=== PATIENT | male | born 1950 | race Caucasian/White ===

== ENCOUNTER 2016-12-02 12:41 | Emergency (ER) | payer MEDICARE, OTHER ==
--- OUTSIDE RECORDS SUMMARY | 2016-12-02 13:16 | XMS REPORT | Summary of Care ---
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) Encounter for screening for malignant Active neoplasm of prostate(Confirmed) Neoplasm of unspecified behavior of Active bladder(Confirmed) Relative Impotence(Confirmed) Active Allergies, Adverse Reactions, Alerts No Known Medication Allergies Medications aspirin 81 mg oral tablet tab(s), Oral, Daily, 0 Refill(s) Start Date: 04/11/14 Status: Ordereddiltiazem 240 mg/24 hours oral capsule, extended release cap(s), Oral, Daily, 0 Refill(s) Start Date: 04/11/14 Status: Orderedmultivitamin Daily, 0 Refill(s) Start Date: 04/11/14 Status: Orderedniacin Oral, 0 Refill(s) Start Date: 04/11/14 Status: Orderedsildenafil 20 mg oral tablet 1 tab(s), Oral, Daily, # 30 tab(s), 11 Refill(s), Start Date: 06/21/15 8:01:40 MOTOR POWER CONNECTOR, Pharmacy: [place], [place] Start Date: 06/21/15 Stop Date: 06/24/15 Status: Completedsildenafil 20 mg oral tablet 1 tab(s), Oral, Daily, # 90 tab(s), 3 Refill(s), Start Date: 06/24/15 14:13:54 MOTOR POWER CONNECTOR, Pharmacy: [id number] Start Date: 06/24/15 Stop Date: 12/20/15 Status: Discontinuedsildenafil 20 mg oral tablet 1 tab(s), Oral, Daily, # 30 tab(s), 11 Refill(s), Start Date: 07/13/16 10:37:00 MOTOR POWER CONNECTOR, Pharmacy: [id number] Start Date: 07/13/16 Status: Orderedsildenafil 20 mg oral tablet 1 tab(s), Oral, Daily, # 30 tab(s), 11 Refill(s), Start Date: 05/09/14 12:48:00 MOTOR POWER CONNECTOR, Pharmacy: [id number] Start Date: 05/09/14 Stop Date: 06/21/15 Status: Completedsildenafil 20 mg oral tablet 1 tab(s), Oral, Daily, # 30 tab(s), 11 Refill(s), Start Date: 12/20/15 14:36:00 CDT Start Date: 12/20/15 Status: OrderedViagra 100 mg oral tablet 1 tab(s), Oral, Daily, PRN for erectile dysfunction, # 6 Tab-Dis, 0 Refill(s), Start Date: 05/09/14 12:53:00 MOTOR POWER CONNECTOR, samples given to patient (Rx), [id number], 07/22 Start Date: 05/09/14 Stop Date: 12/20/15 Status: Discontinued Results Patient Viewable Results Most recent to oldest [Reference Range]: 1 BUN,Istat [7-21 mg/dL] 16 mg/dL (07/21/16 8:40 AM) Creat,Istat [0.5-1.2 mg/dL] 1.0 mg/dL1 (07/21/16 8:40 AM) GFR AA ISTAT [>=60] >60 (07/21/16 8:40 AM) GFR LUKE ISTAT [>=60] >60 (07/21/16 8:40 AM) 1Result Comment: Agricultural Equipment Salesperson: [id number] Stone Shira Immunizations No data available for this section Procedures Procedure Date Related Diagnosis Body Site Colonoscopy 2013 Social History No data available for this section Assessment and Plan No data available for this section
--- OUTSIDE RECORDS SUMMARY | 2016-12-02 13:16 | XMS REPORT | Summary of Care ---
:1950 Author Organization [facility] Address [address] [place] [address]- Care Team Providers Name Role Phone Joseph Fregoso Primary Care Physician Encounter Date(s): 08/04/16 - 08/04/16 [facility] [address] [place] [address]- [facility] Discharge Disposition: 01 Discharged to Home or Self Care Attending Physician: Joseph Fregoso MD Admitting Physician: Joseph Fregoso MD Vital Signs Most recent to oldest 1 2 3 [Reference Range]: Temperature Temporal Artery 36.3 DegC 36.4 DegC 36.1 DegC [36-38 DegC] (08/04/16 4:28 PM) (08/04/16 1:30 PM) (08/04/16 12:45 PM) Heart Rate Monitored [60-100 63 bpm 61 bpm 55 bpm bpm] (08/04/16 4:28 PM) (08/04/16 3:26 PM) *LOW* (08/04/16 2:40 PM) Respiratory Rate [12-20 16 br/min 16 br/min 16 br/min br/min] (08/04/16 4:28 PM) (08/04/16 3:26 PM) (08/04/16 2:40 PM) SpO2 97 % 97 % 95 % (08/04/16 4:28 PM) (08/04/16 3:26 PM) (08/04/16 2:40 PM) Blood Pressure [90-130/60-90 123/71mmHg 119/69mmHg 120/62mmHg mmHg] (08/04/16 4:28 PM) (08/04/16 3:26 PM) (08/04/16 2:40 PM) Mean Arterial Pressure Monitor 87 mmHg Measure (08/04/16 1:39 PM) Most recent to oldest 1 2 3 [Reference Range]: Height/Length Estimated 187.96 cm 187.96 cm 187.96 cm (08/04/16 9:58 AM) (08/04/16 9:44 AM) (07/31/16 2:24 PM) Weight Estimated 117.9 kg 117.9 kg (08/04/16 9:58 AM) (07/31/16 2:24 PM) Weight Dosing 120.8 kg (08/04/16 9:44 AM) Weight Measured 120.8 kg (08/04/16 9:44 AM) BSA Estimated 2.48 m2 (08/04/16 9:58 AM) Body Mass Index Estimated 33.37 kg/m2 (08/04/16 9:58 AM) Problem List Condition Effective Dates Status Health Status Informant 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) Encounter for screening for malignant Active neoplasm of prostate(Confirmed) Neoplasm of unspecified behavior of Active bladder(Confirmed) Relative Impotence(Confirmed) Active Allergies, Adverse Reactions, Alerts No Known Medication Allergies Medications aspirin 81 mg oral tablet 1 tab(s), Oral, Daily, 0 Refill(s), Start Date: 04/11/14 11:55:00 CDT Start Date: 04/11/14 Status: OrderedBactrim 400 mg-80 mg oral tablet 1 tab(s), Oral, Daily, # 30 tab(s), 0 Refill(s), Start Date: 08/04/16 12:48:00 CABLE ENGINEER, Pharmacy: [facility] [place], [place] Start Date: 08/04/16 Status: Ordereddiltiazem 240 mg/24 hours oral capsule, extended release 1 cap(s), Oral, Daily, 0 Refill(s), Start Date: 04/11/14 11:55:00 CDT Start Date: 04/11/14 Status: OrderedDitropan 5 mg oral tablet 1 tab(s), Oral, q12hr, PRN bladder spasm, cramping, severe stent pain, # 30 tab( s), 1 Refill(s), Start Date: 08/04/16 12:47:00 CABLE ENGINEER, Pharmacy: [facility] [place], [place] Start Date: 08/04/16 Status: Orderedhydrocodone-acetaminophen 5mg-325mg oral tablet 1 tab(s), Oral, q6hr, # 30 tab(s), 0 Refill(s), Start Date: 08/04/16 12:47:00 CABLE ENGINEER, Pharmacy: [facility] [place], [place] Start Date: 08/04/16 Status: OrderedMiraLax oral powder for reconstitution 17 gm=, Oral, Daily, # 527 gm, 0 Refill(s), Start Date: 08/04/16 12:47:00 CABLE ENGINEER, Pharmacy: [facility] [place], [place] Start Date: 08/04/16 Status: Orderedmultivitamin 1 tab, Oral, Daily, 0 Refill(s), Start Date: 04/11/14 11:54:00 CDT Start Date: 04/11/14 Status: Orderedniacin 100 mg, Oral, Daily, 0 Refill(s), Start Date: 04/11/14 11:54:00 CDT Start Date: 04/11/14 Status: Orderedsildenafil 20 mg oral tablet 1 tab(s), Oral, Daily, # 30 tab(s), 11 Refill(s), Start Date: 06/21/15 8:01:40 CABLE ENGINEER, Pharmacy: [facility] [place], [place] Start Date: 06/21/15 Stop Date: 06/24/15 Status: Completedsildenafil 20 mg oral tablet 1 tab(s), Oral, Daily, # 90 tab(s), 3 Refill(s), Start Date: 06/24/15 14:13:54 CABLE ENGINEER, Pharmacy: [id number] Start Date: 06/24/15 Stop Date: 12/20/15 Status: Discontinuedsildenafil 20 mg oral tablet 1 tab(s), Oral, Daily, # 30 tab(s), 11 Refill(s), Start Date: 07/13/16 10:37:00 CABLE ENGINEER, Pharmacy: [id number] Start Date: 07/13/16 Status: Orderedsildenafil 20 mg oral tablet 1 tab(s), Oral, Daily, # 30 tab(s), 11 Refill(s), Start Date: 05/09/14 12:48:00 CABLE ENGINEER, Pharmacy: [id number] Start Date: 05/09/14 Stop Date: 06/21/15 Status: Completedsildenafil 20 mg oral tablet 1 tab(s), Oral, Daily, # 30 tab(s), 11 Refill(s), Start Date: 12/20/15 14:36:00 CDT Start Date: 12/20/15 Stop Date: 07/31/16 Status: CompletedtraMADol 50 mg oral tablet 1 tab(s), Oral, q4hr, PRN for pain, # 30 tab(s), 0 Refill(s), Start Date: 12:47:00 CABLE ENGINEER, Pharmacy: [facility] [place], [place] Start Date: 08/04/16 Status: OrderedViagra 100 mg oral tablet 1 tab(s), Oral, Daily, PRN for erectile dysfunction, # 6 Tab-Dis, 0 Refill(s), Start Date: 05/09/14 12:53:00 CABLE ENGINEER, samples given to patient (Rx), [id number], 07/22 Start Date: 05/09/14 Stop Date: 12/20/15 Status: Discontinued Results Patient Viewable Results Most recent to oldest 1 2 3 [Reference Range]: AN - Fi O2 96 % % 93 % % 94 % % (08/04/16 12:40 PM) (08/04/16 12:35 PM) (08/04/16 12:30 PM) ABO/Rh B POS *Unknown* (08/04/16 9:46 AM) Antibody Screen Negative ABSC (08/04/16 9:46 AM) Immunizations No data available for this section Procedures Procedure Date Related Diagnosis Body Site Cystoscopy - SN1 08/04/16 Transurethral Resection Prostate2 08/04/16 TURBT - Transurethral resection of bladder tumor 2014 Colonoscopy 2012 1auto-populated from documented surgical [id number] from documented surgical case Social History No data available for this section Assessment and Plan No data available for this section
--- OUTSIDE RECORDS SUMMARY | 2016-12-02 13:16 | XMS REPORT | Summary of Care ---
:1950 Author Organization [facility] Address [address] [address] [place] [address] Care Team Providers Name Role Phone Joseph Fregoso Primary Care Physician Encounter Date(s): 08/19/16 - 08/19/16 [facility], [address], [place] [address] Discharge Diagnosis: Malignant neoplasm of overlapping sites of bladder Discharge Diagnosis: Encounter for screening for malignant neoplasm of prostate Discharge Diagnosis: Relative Impotence Discharge Disposition: 01 Discharged to Home or Self Care Attending Physician: Joseph Fregoso MD Referring Physician: Joseph Fregoso MD Vital Signs Most recent to oldest [Reference Range]: 1 Peripheral Pulse Rate [60-100 bpm] 80 bpm (08/19/16 12:33 PM) Blood Pressure [90-130/60-90 mmHg] 160/90mmHg *HI* (08/19/16 12:33 PM) Mean Arterial Pressure, Cuff 113 mmHg (08/19/16 12:33 PM) Most recent to oldest [Reference Range]: 1 Height/Length Measured 187 cm (08/19/16 12:33 PM) Weight Dosing 121.6 kg (08/19/16 12:33 PM) Problem List Condition Effective Dates Status Health Status Informant Encounter for screening for malignant Active neoplasm of prostate(Confirmed) Malignant neoplasm of overlapping Active sites of bladder(Confirmed) Relative Impotence(Confirmed) Active Allergies, Adverse Reactions, Alerts No Known Medication Allergies Medications aspirin 81 mg oral tablet 1 tab(s), Oral, Daily, 0 Refill(s), Start Date: 04/11/14 11:55:00 CDT Start Date: 04/11/14 Status: OrderedBactrim 400 mg-80 mg oral tablet 1 tab(s), Oral, Daily, # 30 tab(s), 0 Refill(s), Start Date: 08/04/16 12:48:00 SHIRT HEMMER, [place] Start Date: 08/04/16 Status: Ordereddiltiazem 240 mg/24 hours oral capsule, extended release 1 cap(s), Oral, Daily, 0 Refill(s), Start Date: 04/11/14 11:55:00 CDT Start Date: 04/11/14 Status: OrderedDitropan 5 mg oral tablet 1 tab(s), Oral, q12hr, PRN bladder spasm, cramping, severe stent pain, # 30 tab( s), 1 Refill(s), Start Date: 08/04/16 12:47:00 SHIRT HEMMER, [place] [facility] [place] Start Date: 08/04/16 Status: Orderedhydrocodone-acetaminophen 5mg-325mg oral tablet 1 tab(s), Oral, q6hr, # 30 tab(s), 0 Refill(s), Start Date: 08/04/16 12:47:00 SHIRT HEMMER, Pharmacy: [facility] [place], [place] Start Date: 08/04/16 Status: OrderedMiraLax oral powder for reconstitution 17 gm=, Oral, Daily, # 527 gm, 0 Refill(s), Start Date: 08/04/16 12:47:00 SHIRT HEMMER, [place] [place] Start Date: 08/04/16 Status: Orderedmultivitamin 1 tab, Oral, Daily, 0 Refill(s), Start Date: 04/11/14 11:54:00 CDT Start Date: 04/11/14 Status: Orderedniacin 100 mg, Oral, Daily, 0 Refill(s), Start Date: 04/11/14 11:54:00 CDT Start Date: 04/11/14 Status: Orderedsildenafil 20 mg oral tablet 1 tab(s), Oral, Daily, # 30 tab(s), 11 Refill(s), Start Date: 06/21/15 8:01:40 SHIRT HEMMER, Pharmacy: [facility] [place] Start Date: 06/21/15 Stop Date: 06/24/15 Status: Completedsildenafil 20 mg oral tablet 1 tab(s), Oral, Daily, # 90 tab(s), 3 Refill(s), Start Date: 06/24/15 14:13:54 SHIRT HEMMER, Pharmacy: [id number] Start Date: 06/24/15 Stop Date: 12/20/15 Status: Discontinuedsildenafil 20 mg oral tablet 1 tab(s), Oral, Daily, # 30 tab(s), 11 Refill(s), Start Date: 07/13/16 10:37:00 SHIRT HEMMER, Pharmacy: [id number] Start Date: 07/13/16 Status: Orderedsildenafil 20 mg oral tablet 1 tab(s), Oral, Daily, # 30 tab(s), 11 Refill(s), Start Date: 05/09/14 12:48:00 SHIRT HEMMER, Pharmacy: [facility] Start Date: 05/09/14 Stop Date: 06/21/15 Status: Completedsildenafil 20 mg oral tablet 1 tab(s), Oral, Daily, # 30 tab(s), 11 Refill(s), Start Date: 12/20/15 14:36:00 CDT Start Date: 12/20/15 Stop Date: 07/31/16 Status: CompletedtraMADol 50 mg oral tablet 1 tab(s), Oral, q4hr, PRN for pain, # 30 tab(s), 0 Refill(s), Start Date: 12:47:00 SHIRT HEMMER, Pharmacy: [facility] [place], [place] Start Date: 08/04/16 Status: OrderedViagra 100 mg oral tablet 1 tab(s), Oral, Daily, PRN for erectile dysfunction, # 6 Tab-Dis, 0 Refill(s), Start Date: 05/09/14 12:53:00 SHIRT HEMMER, samples given to patient (Rx), [id number], 07/22 Start Date: 05/09/14 Stop Date: 12/20/15 Status: Discontinued Results No data available for this section Immunizations No data available for this section Procedures Procedure Date Related Diagnosis Body Site Cystoscopy - SN1 08/04/16 Transurethral Resection Prostate2 08/04/16 TURBT - Transurethral resection of bladder tumor 2014 Colonoscopy 2012 1auto-populated from documented surgical [id number] from documented surgical case Social History No data available for this section Assessment and Plan No data available for this section
--- OUTSIDE RECORDS SUMMARY | 2016-12-02 13:16 | XMS REPORT | Continuity of Care Document ---
:1950 Author Organization [facility] ([facility]) Address [place] [address] Phone [phone] Care Team Providers Name Role Phone [phone], Need To Check Primary Care Provider Unavailable Source Comments This disclosure is being made pursuant to the Care Everywhere program, applicable federal and state laws, and may not contain all informaitonavailable regarding this patient.[facility] ([facility]) Active Allergies and Adverse Reactions Not on File Current Medications Not on file Active Problems Not on file Most Recent Encounters Date Type Specialty Providers Description 11/27/2016 [facility] Zari Hollis Chief Comp: Appointment Info 11/27/2016 Telephone Cancer Center Alyson Lyons RN Social History Tobacco Use Types Packs/Day Years Used Date Never Assessed Plan of Care Date Type Specialty Providers Description 12/09/2016 Appointment Urology Oncology Gurpreet Duncan MD Chief Comp: Patient [address] [place] [address] Visit [phone] (Fax) Health Maintenance Due Date Last Done Comments HCV Screening 1950 Hepatitis B Vaccine (1 of 3 - Primary Series) 1950 Tdap Vaccine 1961 Lipid Disorder Screening 01/13/1968 Td Vaccine 01/13/1968 Colonoscopy 2000 Prostate Cancer Screening 01/13/2000 Zoster Vaccine 2010 Pneumococcal Vaccine (1 of 2 - PCV13) 2015 Influenza Vaccine: Seasonal (Season Ended) 2017 Results from Last 3 Months Not on file
--- OUTSIDE RECORDS SUMMARY | 2016-12-02 13:16 | XMS REPORT | CCD ---
:1950 Author Name FERNANDO FAYE Address [address] [facility] Unavailable [place], [place] [id number] Care Team Providers Name Role Phone LIBRADO MEYER Attending Physician Unavailable Vital Signs Vital Sign Value Unit Date/Time Recent/Initial? Weight Measured 260.58 lbs 04/18/2015 12:10 Initial VS Height 74 in 04/18/2015 12:10 Initial VS BMI (Body Mass Index) 33.46 kg/m^2 04/18/2015 12:10 Initial VS BSA (Body Surface Area) 2.48 m^2 04/18/2015 12:10 Initial VS Allergies Allergy Code Allergy Type Reaction Status No Known Drug Allergies 0 No known drug allergies Active Procedures Procedure Code Procedure Type Date Replacement of Right Lens with Synthetic [id number] ICD-10 PCS 04/23/2015 Substitute, Percutaneous Approach Insertion of intraocular lens prosthesis at 1371 ICD-9 CM, Volume 3 2014 time of cataract extraction (o History of Immunizations Unknown or Not Available. Problems Unknown or Not Available. Results Unknown or Not Available. Active Medications Unknown or Not Available. Medications Administered During Visit Unknown or Not Available. Encounters Encounter Diagnosis Diagnosis Code Start Date Age-related nuclear cataract, right eye H2511 04/23/2015 Social History Smoking Status Code Start Date End Date Never smoker [id number] Patient Decision Aids Unknown or Not Available. Discharge Instructions You were admitted to [facility] on 04/23/2015 with a principal diagnosis of Age-related nuclear cataract, right eye. You had the following procedures done:CATARACT SURG W/IOL 1 STAGEINSERT LENS AT CATAR EXT You were discharged from [facility] on 04/23/2015. Should you have any questions prior to discharge, please contact a member of your healthcare team. If you have left the hospital and have any questions, please contact your primary care physician. Chief Complaint and Reason For Visit Unknown or Not Available. Function Status Unknown or Not Available. Plan of Care Unknown or Not Available. Referral/Transition of Care Unknown or Not Available.
--- OUTSIDE RECORDS SUMMARY | 2016-12-02 13:16 | XMS REPORT | CCD ---
:1950 Author Name FERNANDO FAYE Address [address] [facility] Unavailable [place], [place] [id number] Care Team Providers Name Role Phone LIBRADO MEYER Attending Physician Unavailable Vital Signs Vital Sign Value Unit Date/Time Recent/Initial? Weight Measured 260.7 lbs 04/11/2015 09:58 Initial VS Height 74 in 04/11/2015 09:58 Initial VS BMI (Body Mass Index) 33.47 kg/m^2 04/11/2015 09:58 Initial VS BSA (Body Surface Area) 2.48 m^2 04/11/2015 09:58 Initial VS Allergies Unknown or Not Available. Procedures Procedure Code Procedure Type Date Replacement of Left Lens with Synthetic [id number] ICD-10 PCS 04/16/2015 Substitute, Percutaneous Approach Insertion of intraocular lens prosthesis at 1371 ICD-9 CM, Volume 3 2014 time of cataract extraction (o History of Immunizations Unknown or Not Available. Problems Unknown or Not Available. Results Unknown or Not Available. Active Medications Unknown or Not Available. Medications Administered During Visit Unknown or Not Available. Encounters Encounter Diagnosis Diagnosis Code Start Date Age-related nuclear cataract, left eye H2512 04/16/2015 Social History Smoking Status Code Start Date End Date Never smoker [id number] Patient Decision Aids Unknown or Not Available. Discharge Instructions You were admitted to [facility] on 04/16/2015 with a principal diagnosis of Age-related nuclear cataract, left eye. You had the following procedures done:CATARACT SURG W/IOL 1 STAGEINSERT LENS AT CATAR EXT You were discharged from [facility] on 04/16/2015. Should you have any questions prior to [...]
[2016-12-02] MEDS ORDERED: KETOROLAC TROMETHAMINE 30 MG/ML VIAL IM ONE (13:30)
[2016-12-02] MEDS ORDERED: KETOROLAC TROMETHAMINE 30 MG/ML VIAL ONE (13:44)
[2016-12-02 13:46] LABS: Hematocrit 45.5 % (42.0-52.0); Hemoglobin 15.7 gm/dL (13.5-18.0); Mean Cell Volume 87.5 fl (78-100); Mean Corpuscular Hemoglobin 30.2 pg (27-31); Mean Corpuscular Hgb Conc 34.5 g/dl (32-36); Mean Platelet Volume 10.4 fl (6.0-9.5); Neutrophil # 4.1 K/mm3 (1.3-6.0); Neutrophil % 65.1 % (42-75.0); Platelet Count 172 K/mm3 (150-450); Red Cell Distribution Width 12.3 % (11.5-14.0); White Blood Count 6.4 K/mm3 (4.0-10.5)
--- NOTE | 2016-12-02 13:51 | ERNOTE ---
Integumentary HPI - Narrative Date of Service: 12/02/16 - General Presenting Symptoms: rash Time Seen by Provider: 12/02/16 13:06 Source: patient Exam Limitations: no limitations - Immun/Allergies/Home Medications Immunizations: IMMUNIZATION HX History of Influenza Vaccine Yes Hx Pneumococcal Vaccination More Information Required Allergies/Adverse Reactions: Allergies Allergy/AdvReac Type Severity Reaction Status Date / Time No Known Allergies Allergy Verified 12/02/16 12:57 Home Medications: HOME MEDICATIONS Aspirin [Aspirin Enteric Coated] 81 mg PO DAILY 06/20/13 [Last Taken Unknown] Diltiazem HCl [Diltiazem 24Hr ER] 240 mg PO DAILY 06/20/13 [Last Taken Unknown] Multivitamins [Multivitamin Rufino] 1 cap PO DAILY 06/20/13 [Last Taken Unknown] HYDROcodone/ACETAMINOPHEN [[place] 5-325] 1 - 2 tab PO QID PRN #30 tab 05/19/15 [ Last Taken Unknown] Gabapentin 100 mg PO DAILY PRN #30 capsule 12/02/16 [Last Taken Unknown] HYDROcodone/ACETAMINOPHEN [Lortab 7.5-325 mg Tablet] 1 each PO BID #20 tablet [Last Taken Unknown] valACYclovir HCL [Valtrex] 500 mg PO BID #20 tablet 12/02/16 [Last Taken Unknown ] - History of Present Illness Narrative: patient states he was moving some things for his daughter on wednesday, later that night he thought he had his belt too tight and noted a rash on his right flank. He states he has a tingling sensation. Patient had recent surgery TURP for concerns of bladder cancer, just started new treatment, under care of urologist , Dr. Ruiz. He just had visit on Wednesday. Patient denies fevers chills, denies hematuria. Patient states took ibuprofen with no improvement in pain level rates his pain at / 10. Date (Duration): 11/29/16 Time (Timing): 20:00 Location: Reports: torso, other - right lower even with belt line Severity: moderate, other - 10/12 Exposure: Reports: no cause identified, other - states he had zoster vaccine Modifying Factors - (Improves): Reports: other - aleve Modifying Factors - (Worsens): Reports: scratching Associated Symptoms: Reports: rash, change in skin texture. Denies: blisters Prior Treatment: Reports: recently seen, other - by urologist . Denies: currently on antibiotics Review of Systems - Narrative Narrative: ROS also per HPI narrative - Review of Systems Constitutional: Present: no symptoms reported EYE: Present: no symptoms reported ENT: Present: no symptoms reported Respiratory: Present: no symptoms reported Cardiology: Present: no symptoms reported Gastrointestinal/Abdominal: Present: no symptoms reported Genitourinary: Present: no symptoms reported Musculoskeletal: Present: See HPI, muscle pain, other - rash lower right belt line, - Narrative Narrative: pmhx, past surg hx, social hx and meds and allergies reviewed - Patient's Past Medical History Patient History - Medical: No pertinent hx Patient History - Cardiac/Respiratory: Hypertension Patient History - Cancer: Bladder Patient History - Surgical Procedures: Cataracts, Other Patient History - Other: None - Family History Mother Family History - Medical: Father Family History - Medical: - Social History Living Situations: significant other Abuse History: No History of abuse Psych History: No pertinent hx Alcohol Use: occasionally Drug Use: none - Immunizations Hx Pneumococcal Vaccination: More Information Required to Determine History of Influenza Vaccine: Yes Physical Exam - Physical Exam General Appearance: Present: wd/wn, no apparent distress Eye Exam: Normal inspection: bilateral, PERRL: bilateral, EOMI: bilateral Ears, Nose, Throat: Present: normal ENT inspection, normal pharynx Neck: Present: normal inspection, nontender Respiratory: Present: no respiratory distress, normal breath sounds, no accessory muscle use, chest nontender, lungs clear Cardiovascular/Chest: Present: regular rate, rhythm, no murmur, normal peripheral pulses Gastrointestinal/Abdominal: Present: normal bowel sounds, nontender, nondistended, soft, no organomegaly Rectal Exam: Present: deferred Male Genitals Exam: Present: deferred Back Exam: Present: no vertebral tenderness, decreased range of motion, muscle spasm - right side, rash just above iliac . Absent: CVA tenderness (R) Skin Exam: Present: normal color Lymphatic Exam: Present: no adenopathy ED Progress - Date and Time Seen: Date and Time: 12/02/16 15:07 reviewed with patient labs and xray results, discussed that if this is shingles it should be treated with antiviral and gabapentin for neuropathic pain. follow up with Dr. Baxter - Results and Orders Patient's Lab Results:: I have reviewed the patient's lab results. - Vital Signs Patient's Vital Signs:: I have reviewed the patient's vital signs. Vital Signs: Vital Signs 12/02/16 12:50 Temperature 36.8 C Pulse Rate 70 Respiratory 14 Rate Blood Pressure 144/94 O2 Sat by Pulse 95 Oximetry - X-Ray X-Ray #1 X-Ray: lumbosacral Interpretation: Interp. by me, Reviewed by me, Discd w/ radiologist - Progress/Reassessment Chief Complaint: Rash Progress:: Pain free at discharge Plan - Plan Plan: Patient to get ketorolac to see if pain improves. Patient states he does have pain pills left over from his prior surgery he is not sure what it is. Departure Clinical Impression: Low back pain Zoster Qualifiers: Herpes zoster complications: with other complications Qualified Code(s): B02.8 - Zoster with other complications - Departure Disposition: Home self-care Instructions: Facet Syndrome, Arthritis, [id number], Shingles, [id number] Additional Instructions: follow up with your Doctor next week Referrals: Mitch Baxter MD [Primary Care Provider] - Prescriptions: Gabapentin 100 mg PO DAILY PRN #30 capsule PRN Reason: nerve pain HYDROcodone/ACETAMINOPHEN [Lortab 7.5-325 mg Tablet] 1 each PO BID #20 tablet valACYclovir HCL [Valtrex] 500 mg PO BID #20 tablet
[2016-12-02 13:59] LABS: Urine Bilirubin Negative (NEGATIVE); Urine Ketone Negative (NEGATIVE); Urine Nitrite Negative (NEGATIVE); Urine Protein 15 mg/dL (NEGATIVE); Urine Urobilinogen Normal (NORMAL)
[2016-12-02 14:00] LABS: Albumin * 3.8 gm/dl (3.4-5.0); BUN/Creatinine Ratio 13.3 (9.0-21.6); Bilirubin, Total 0.6 mg/dL (0.0-1.1); Calcium * 9.2 mg/dL (7.9-10.9); Carbon Dioxide 29.1 mmol/L (24-32.6); Potassium 4.1 mmol/L (3.4-4.6); Total Protein 8.4 gm/dL (6.2-8.2)
[2016-12-02 14:07] LABS: Urine Appearance Clear; Urine Bacteria None Seen; Urine Blood 10 /ul (NEGATIVE); Urine Color Yellow; Urine RBC None Seen /hpf (0-5); Urine WBC None Seen /hpf (0-5)
[2016-12-02 15:01] VITALS: BP 165/85
== END 2016-12-02 15:14 | disposition home or self-care (01) ==
LOC: ER 12:41
DX: B02.8 Zoster with other complications (principal); M54.5 Low back pain; I10 Essential (primary) hypertension; Z85.51 Personal history of malignant neoplasm of bladder

== ENCOUNTER 2017-06-23 07:24 | Day surgery (SDC) | payer MEDICARE, OTHER ==
[~2017-06-23 07:24] MED LIST: RINGER'S SOLUTION,LACTATED 1,000 ML IV PRN
[2017-06-23] MEDS ORDERED: RINGER'S SOLUTION,LACTATED 1,000 ML IV PRN (10:13)
[2017-06-23 11:07] VITALS: BP 138/73
--- NOTE | 2017-06-23 18:05 | OR ---
Operative Report - Dictated Report Narrative: OPERATIVE REPORT DATE OF OPERATION: 06/23/2017 PREOPERATIVE DIAGNOSIS: History of colon polyps. Family history of colon cancer POSTOPERATIVE DIAGNOSIS: Small 2-3mm colon polyps at 95 cm and 85 cm ( pathology pending). Significant diverticulosis OPERATION: Colonoscopy with cold forceps polypectomies 2 SURGEON: Kendrick Abdul MD ANESTHESIA: SUNDAR Huggins CRNA INDICATIONS FOR PROCEDURE: The patient is a 67-year-old male who presents self referred for colon surveillance. He had a hyperplastic polyp removed in 2007. In 2012 he had a tubular adenoma and a villous adenoma removed and developed localized peritonitis which was treated with IV antibiotics. His brother had colon cancer at age 50. The patient has irregular bowel habits. FINDINGS: 2-3mm areas of polypoid change at 95 cm and 85 cm (pathology pending) . Redundant colon with significant diverticulosis NARRATIVE OF PROCEDURE: The patient was identified in the holding area, and prior to the administration of anesthetic, a multidisciplinary timeout was observed. With the patient in the left lateral position and after the administration of intravenous sedation, the perineum was inspected. There was no evidence of pilonidal disease or skin breakdown. The external appearance of the anus was normal. Sphincter tone was good. The flexible fiberoptic colonoscope was inserted into the rectum which was insufflated with air. The rectal mucosa and submucosal vascular pattern appeared normal, the prep was seen to be complete. The scope was advanced through the sigmoid colon, up the descending colon, and around the splenic flexure where the triangular haustral architecture of the transverse colon was seen. The scope was advanced across the transverse colon, around the hepatic flexure to the cecum, where the confluence of tenia and the ileocecal valve were identified. The mucosa at this level appeared normal. The scope was then slowly withdrawn in a circular fashion so that all aspects of colonic mucosa were inspected. The colon was redundant and course and slightly capacious in character. The haustral architecture appeared well preserved throughout with no evidence of external compression. The mucosa and submucosal vascular pattern appeared normal, specifically there was no gross evidence to suggest colitis or inflammatory bowel disease and no AV malformations were seen. There was significant sigmoid diverticulosis without evidence of inflammation or impaction. 2 very small polyps were encountered at 95 cm and 85 cm. These were removed with a single bite of cold biopsy forceps. The areas appeared to be complete and hemostatic.. The scope was gradually withdrawn to the level of the rectum. As much insufflated air as possible was removed. The scope was withdrawn from the patient and the procedure terminated. The patient tolerated the anesthetic and procedure well without complication and was transferred back to the ambulatory surgery area awake and in stable condition. The patient remained stable throughout a period of postoperative observation. He denied abdominal discomfort, was able to tolerate by mouth intake, and was up without assistance. I shared the operative findings with the patient and he was given copies of the photographs which appear in the medical record. He was discharged home with instructions not to engage in hazardous activity today, but may resume normal activity tomorrow, and advance diet as tolerated. He is to continue those medications as listed in the history and physical exam. I made arrangements to contact him with the biopsy reports and will make additional recommendations for treatment and follow-up based upon those results. Reviewed and electronically signed
== END 2017-06-23 07:25 | disposition home or self-care (01) ==
LOC: AMB 07:24
PROVIDERS: ATTEND Surgery
PROC: 0DBL8ZX Excision of Transverse Colon, Via Natural or Artificial Opening Endoscopic, Diagnostic (ICD-10-PCS; principal; 2017-06-23 08:30)
DX: Z12.11 Encounter for screening for malignant neoplasm of colon (principal); K63.5 Polyp of colon; K57.30 Diverticulosis of large intestine without perforation or abscess without bleeding; I10 Essential (primary) hypertension; E78.5 Hyperlipidemia, unspecified; Z87.891 Personal history of nicotine dependence; Z68.34 Body mass index [BMI] 34.0-34.9, adult; Z80.0 Family history of malignant neoplasm of digestive organs